=== PATIENT | female | born 1940 | race Caucasian/White ===

== ENCOUNTER → 2020-03-13 | Outpatient (CLI) | payer MEDICARE ==
--- NOTE | 2020-03-13 13:33 | RAD ---
EXAM DESCRIPTION: Barium Enema w/Air Contrast CLINICAL HISTORY: MELENA COMPARISON: [None Available.] TECHNIQUE: Preliminary steward/stewardess lounge image AP abdomen and pelvis and lateral fluoroscopic pelvic image. Patient supine on fluoroscopic table. Barium enema tip inserted in rectum. Air and medium barium contrast introduced into the rectum in a retrograde manner under fluoroscopic visualization. 28 fluoroscopic guided digital spot images by the radiologist. Five, Digital, overhead tube, abdomen-pelvis images were recorded of abdomen and pelvis. The enema tip was removed and patient evacuated. Six additional digital, overhead tube, abdomen-pelvis images were obtained. Total images: 6 . The patient . Stopped the procedure frequently due to pain. no immediate complications. Fluoroscopy time was 8.5 minutes. DAP: 93.9 Gy-cm2.. FINDINGS: Speed Operator images show nonspecific bowel gas pattern. 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 Mild arthrosis right SI joint. Initial air contrast images are unremarkable showing the sigmoid colon descending colon and splenic flexure and distal transverse colon. There was difficulty for the barium to progress into the cecum, due to intestinal gas and patient pain level. Scattered diverticula in the redundant sigmoid colon. No complications. Limited coating of the cecum, ascending colon, and proximal transverse colon. No obstruction. The rectum is well visualized and unremarkable. Initial reflux into the terminal ileum is seen on the postevacuation overhead images. Minimal retained fecal material in the mid transverse colon on the postevacuation images. No mass effect. No marked intrinsic mucosal or intraluminal lesions. IMPRESSION: 1. Limited double contrast barium enema due to limited contrast coating of the cecum and ascending colon. 2. No large intrinsic lesions, no mass effect, no obstruction. Sigmoid diverticulosis but no complications. 3. Advanced arthrosis left hip joint. Electronically signed by: Yuan Atkinson MD 03/13/2020 1:32 PM CDT
== END ==
LOC: RAD 09:00
DX: K92.1 Melena (principal); K57.30 Diverticulosis of large intestine without perforation or abscess without bleeding; M16.12 Unilateral primary osteoarthritis, left hip